=== PATIENT | male | born 1995 | race African-American/Black ===

== ENCOUNTER 2018-05-28 23:13 | Emergency (ER) | payer SELFPAY ==
[~2018-05-28] VITALS: Ht 182.9 cm; Wt 73.0 kg
[2018-05-28] MEDS ORDERED: TETANUS, DIPHTHERIA, PERTUSSIS VAC/PF 0.5ML (>7YR OLD) IM ONE (23:45)
[2018-05-28] MEDS ORDERED: MORPHINE SULFATE 4 MG/ML CPJ (NOT FOR IM USE) IV ONE (23:45)
[2018-05-29] MEDS ORDERED: MORPHINE SULFATE 4 MG/ML CPJ (NOT FOR IM USE) IV ONE (00:30)
[2018-05-29] MEDS ORDERED: LIDOCAINE HCL/EPINEPHRINE 1%-EPI 1:100,000 30 ML VIAL INFIL ONE (00:30)
[2018-05-29 01:15] VITALS: BP 168/82
== END 2018-05-29 01:15 | disposition home or self-care (01) ==
LOC: ER 23:13
DX: S82.442A Displaced spiral fracture of shaft of left fibula, initial encounter for closed fracture (principal); S93.05XA Dislocation of left ankle joint, initial encounter; S90.512A Abrasion, left ankle, initial encounter; F17.200 Nicotine dependence, unspecified, uncomplicated; X50.1XXA Overexertion from prolonged static or awkward postures, initial encounter; Y93.02 Activity, running; Y92.9 Unspecified place or not applicable
CPT/HCPCS: 27788; 73600; 73610; 90471; 90715; 96374; 96376; 99284; J2270; Z7610